=== PATIENT | female | born 1990 | race Caucasian/White ===

== ENCOUNTER 2019-02-03 22:13 | Emergency (ER) | payer SELFPAY ==
[~2019-02-03] VITALS: Ht 152.4 cm; Wt 68.1 kg
--- NOTE | 2019-02-03 22:41 | NUR ---
PT HERE FOR POSSIBLE BLOOD IN URING AND SPOTTING SINCE YESTERDAY. VSS. PT IS 7 WEEKS PREGANANT. UA SENT TO LAB. LAB AT BEDSIDE. CALL LIGHT IN REACH
--- NOTE | 2019-02-03 22:51 | NUR ---
pt to us.
[2019-02-03 22:57] LABS: MICROSCOPIC AUTO
[2019-02-03 22:57] LABS: BASOPHILS # (AUTO) 0.09 x10^3/uL (0-0.1); BASOPHILS % (AUTO) 1 % (0-1); EOSINOPHILS # (AUTO) 0.04 x10^3/uL (0-0.4); EOSINOPHILS % (AUTO) 0 % (1-7); LYMPHOCYTES # (AUTO) 2.67 x10^3/uL (1-3.4); LYMPHOCYTES % (AUTO) 28 % (22-44); MD NO; MEAN CORPUSCULAR HEMOGLOBIN 31.5 pg (27.0-34.8); MEAN CORPUSCULAR HGB CONC 33.8 g/dL (32.4-35.8); MEAN CORPUSCULAR VOLUME 93.1 fL (80-100); MEAN PLATELET VOLUME 9.9 fL (7.4-10.4); MONOCYTES # (AUTO) 0.52 x10^3/uL (0.2-0.8); MONOCYTES % (AUTO) 5 % (2-9); NEUTROPHILS # (AUTO) 6.36 x10^3/uL (1.8-6.8); NEUTROPHILS % (AUTO) 66 % (42-75); PLATELET COUNT 215 x10^3/uL (130-400); RED BLOOD COUNT 4.19 x10^6/uL (3.82-5.3); RED CELL DISTRIBUTION WIDTH 12.7 % (9.6-15.2)
[2019-02-03 22:58] LABS: CULTURE INDICATED? NO
[2019-02-03 22:59] LABS: ALANINE AMINOTRANSFERASE 21 U/L (12-78); ALBUMIN 3.6 g/dL (3.4-5.0); ANION GAP 7 mmol/L (5-15); CHLORIDE 106 mmol/L (98-107); CREATININE 0.58 mg/dL (0.55-1.02)
[2019-02-03 23:11] VITALS: BP 122/73
[2019-02-03 23:19] LABS: ALKALINE PHOSPHATASE 37 U/L (45-117); BILIRUBIN,TOTAL 0.2 mg/dL (0.2-1.0); TOTAL PROTEIN 7.3 g/dL (6.4-8.2)
--- NOTE | 2019-02-03 23:54 | NUR ---
Patient given discharge instructions and they have confirmed that they understand the instructions. Patient ambulatory with steady gait.
== END 2019-02-03 23:55 | disposition home or self-care (01) ==
LOC: ED 23:47
DX: O20.0 Threatened abortion (principal)
CPT/HCPCS: 36415; 76830; 80053; 81001; 84702; 85025; 86901; 99284